=== PATIENT | female | born 1980 | race African-American/Black ===

== ENCOUNTER 2020-04-23 07:59 | Emergency (ER) | payer SELFPAY ==
[~2020-04-23] VITALS: Ht 149.9 cm; Wt 79.0 kg
[2020-04-23 08:41] VITALS: BP 169/79
--- NOTE | 2020-04-23 09:06 | PHYS DOC ---
General Adult EDM: Chief Complaint: SORE THROAT HPI: HPI: Patient is a 39 year old female who presented to ER today for evaluation of sore throat and nonproductive cough. Patient said a week ago she had oral sex and the penis went too deep into her throat causing her to gag. Patient has had sore throat since. Patient also have a nonproductive cough. Patient denies being exposed to anybody who tested positive for COVID-19. Patient said she has sexual intercourse with her boyfriend whom she has been with for 16 years. Patient denies any abdominal pain, no nausea vomiting, no chest pain, no trouble breathing. Review of Systems: Review of Systems: Constitutional: Denies fever or chills. [] Eyes: Denies change in visual acuity. [] HENT: Denies nasal congestion , positive for sore throat. Respiratory: Positive for cough, no trouble breathing. Cardiovascular: Denies chest pain or edema. [] GI: Denies abdominal pain, nausea, vomiting, bloody stools or diarrhea. [] : Denies dysuria. [] Musculoskeletal: Denies back pain or joint pain. [] Integument: Denies rash. [] Neurologic: Denies headache, focal weakness or sensory changes. [] Endocrine: Denies polyuria or polydipsia. [] Lymphatic: Denies swollen glands. [] Psychiatric: Denies depression or anxiety. [] Heart Score: Risk Factors: Risk Factors: DM, Current or recent (<one month) smoker, HTN, HLP, family history of CAD, obesity. Risk Scores: Score 0 - 3: 2.5% MACE over next 6 weeks - Discharge Home Score 4 - 6: 20.3% MACE over next 6 weeks - Admit for Clinical Observation Score 7 - 10: 72.7% MACE over next 6 weeks - Early Invasive Strategies Physical Exam: PE: Constitutional: Well developed, well nourished, no acute distress, non-toxic appearance. [] HENT: Normocephalic, atraumatic, bilateral external ears normal, oropharynx moist, no oral exudates, nose normal. TRACHEA IS MIDLINE, NO SWELLING, NO CREPIT US, NO TRISMUS, NO EXUDATION. Eyes: PERRLA, EOMI, conjunctiva normal, no discharge. [] Neck: Normal range of motion, no tenderness, supple, no stridor. [] Cardiovascular:Heart rate regular rhythm, no murmur [] Lungs & Thorax: Bilateral breath sounds clear to auscultation [] Abdomen: Bowel sounds normal, soft, no tenderness, no masses, no pulsatile masses. [] Skin: Warm, dry, no erythema, no rash. [] Back: No tenderness, no CVA tenderness. [] Extremities: No tenderness, no cyanosis, no clubbing, ROM intact, no edema. [] Neurologic: Alert and oriented X 3, normal motor function, normal sensory function, no focal deficits noted. [] Psychologic: Affect normal, judgement normal, mood normal. [] EKG: EKG: [] Radiology/Procedures: Radiology/Procedures: [][facility] [address] [place], [place] [id number] IMAGING REPORT Signed PATIENT: MARCELLA RIOJAS ACCOUNT: [id number] : 1980 LOCATION: ER AGE: 39 SEX: F EXAM STATUS: REG ER ORD. PHYSICIAN: KULWANT NAVARRO DO REASON: COUGH, PROCEDURE: CHEST AP ONLY CHEST AP ONLY History: Reason: COUGH, / Spl. Instructions: / History: Comparison: None. Findings: No consolidation or pleural effusion. Normal heart size. No pneumothorax. Impression: 1. No acute cardiopulmonary process. Electronically signed by: Pedro Franco DO (04/23/2020 9:46 AM) [id number] DICTATED and SIGNED BY: PEDRO FRANCO DO DATE: 04/23/20 0946 Course & Med Decision Making: Course & Med Decision Making Pertinent Labs and Imaging studies reviewed. (See chart for details) [] Dragon Disclaimer: Dragon Disclaimer: This electronic medical record was generated, in whole or in part, using a voice recognition dictation system. Departure Departure Impression: Primary Impression: Pharyngitis Disposition: 01 DC HOME SELF CARE/HOMELESS Condition: STABLE Referrals: CESAR STEEN JR, MD (PCP) FOLLOW UP WITH YOUR DOCTOR NEEDED Patient Instructions: Viral and Bacterial Pharyngitis Additional Instructions: Thank you for visiting our Emergency Department. We appreciate you trusting us with your care. If any additional problems come up don't hesitate to return to visit us. Please follow up with your primary care provider so they can plan additional care if needed and know about the problem that you had. If symptoms worsen come back to the Emergency Department. Any concerning symptoms that start such as chest pain, shortness of air, weakness or numbness on one side of the body, running high fevers or any other concerning symptoms return to the ER. Scripts Amoxicillin (AMOXICILLIN) 500 Mg Tablet 1 TAB PO TID, #30 TAB Prov: KULWANT NAVARRO DO 04/23/20 KULWANT NAVARRO DO Apr 23, 2020 09:06
--- NOTE | 2020-04-23 09:49 | RAD ---
CHEST AP ONLY History: Reason: COUGH, / Spl. Instructions: / History: Comparison: None. Findings: No consolidation or pleural effusion. Normal heart size. No pneumothorax. Impression: 1. No acute cardiopulmonary process. Electronically signed by: Pedro Franco DO (04/23/2020 9:46 AM) [id number]
[2020-04-23] MEDS ORDERED: AMOX500T PO (10:34)
--- NOTE | 2020-04-24 15:50 | NUR ---
IP: Informed pt of negative COVID test. Pt verbalized understanding.
== END 2020-04-23 10:42 | disposition home or self-care (01) ==
LOC: ER 07:59
DX: J02.9 Acute pharyngitis, unspecified (principal); Z20.828 Contact with and (suspected) exposure to other viral communicable diseases; R05 Cough
CPT/HCPCS: 71045; 87070; 87880; 99284; U0003

== ENCOUNTER 2021-02-20 05:37 | Emergency (ER) | payer SELFPAY ==
[~2021-02-20] VITALS: Ht 149.9 cm; Wt 78.0 kg
[~2021-02-20 05:37] MED LIST: AMOX500T PO
[2021-02-20] MEDS ORDERED: VANCOMYCIN PER PHARMACY MC PRN (08:15)
[2021-02-20 08:24] LABS: BASO # 0.1 x10^3/uL (0.0-0.2); BASO % 1 % (0-3); EOS # 0.1 x10^3/uL (0.0-0.7); EOS % 1 % (0-3); HEMATOCRIT 36.1 % (36.0-47.0); HEMOGLOBIN 12.1 g/dL (12.0-15.5); LYMPH # 2.2 x10^3/uL (1.0-4.8); LYMPH % 21 % (24-48); MEAN CORPUSCULAR HEMOGLOBIN 29 pg (25-35); MEAN CORPUSCULAR HGB CONC 34 g/dL (31-37); MEAN CORPUSCULAR VOLUME 86 fL (79-100); MONO # 0.9 x10^3/uL (0.0-1.1); MONO % 8 % (0-9); NEUT # 7.3 x10^3/uL (1.8-7.7); NEUT % 69 % (31-73); PLATELET COUNT 339 x10^3/uL (140-400); RED BLOOD COUNT 4.18 x10^6/uL (3.50-5.40); RED CELL DISTRIBUTION WIDTH 14.3 % (11.5-14.5); WHITE BLOOD COUNT 10.6 x10^3/uL (4.0-11.0)
[2021-02-20] MEDS ORDERED: ONDANSETRON PF 4 MG/2 ML VIAL. ONE (08:28)
[2021-02-20] MEDS ORDERED: VANCOMYCIN 1.5 GM in IV NORMAL SALINE 500ML BAG 500 ML IV ONE (08:30)
[2021-02-20] MEDS ORDERED: LIDOCAINE 1% Multi-Dose 20 ML VIAL. INJ ONE (08:30)
[2021-02-20] MEDS ORDERED: ONDANSETRON PF 4 MG/2 ML VIAL. IVP ONE (08:30)
[2021-02-20] MEDS ORDERED: IV NORMAL SALINE 1000ML BAG 1,000 ML IV ONE (08:30)
[2021-02-20] MEDS ORDERED: MORPHINE SULFATE 4 MG/ML INJ. IVP ONE (08:30)
[2021-02-20 08:38] LABS: CALCIUM 8.8 mg/dL (8.5-10.1); CREATININE 0.6 mg/dL (0.6-1.0); GFR 133.3; POTASSIUM 4.4 mmol/L (3.5-5.1)
[2021-02-20 08:44] LABS: ALBUMIN 3.1 g/dL (3.4-5.0); ALBUMIN/GLOBULIN RATIO 0.8 (1.0-1.7); TOTAL BILIRUBIN 0.4 mg/dL (0.2-1.0)
[2021-02-20 09:08] LABS: PREG TEST PT QUAL NEGATIVE (NEG)
[2021-02-20] MEDS ORDERED: HYDROmorphone 2 MG/ML VIAL IVP ONE (10:30)
--- NOTE | 2021-02-20 11:08 | PHYS DOC ---
Past Medical History Past Medical History: No Pertinent History Past Surgical History: No Surgical History Smoking Status: Former Smoker Alcohol Use: None General Adult EDM: Chief Complaint: LOWER EXTREMITY SWELLING HPI: HPI: Patient is a 40 year old female who present to ER for evaluation of a wound on her left calf area that been going on for 4 days. Patient states she felt like she was bitten by an insect or spider 4 days ago, she noted a small lesion, it became more swollen and painful, denies any fever. Patient denies any history of diabetic. Patient denies any chest pain or any trouble breathing. Review of Systems: Review of Systems: Constitutional: Denies fever or chills. [] Eyes: Denies change in visual acuity. [] HENT: Denies nasal congestion or sore throat. [] Respiratory: Denies cough or shortness of breath. [] Cardiovascular: Denies chest pain or edema. [] GI: Denies abdominal pain, nausea, vomiting, bloody stools or diarrhea. [] : Denies dysuria. [] Musculoskeletal: Denies back pain or joint pain. [] Integument: Positive for a large tender wound on the left proximal calf. Neurologic: Denies headache, focal weakness or sensory changes. [] Endocrine: Denies polyuria or polydipsia. [] Lymphatic: Denies swollen glands. [] Psychiatric: Denies depression or anxiety. [] Heart Score: C/O Chest Pain: N/A Risk Factors: Risk Factors: DM, Current or recent (<one month) smoker, HTN, HLP, family history of CAD, obesity. Risk Scores: Score 0 - 3: 2.5% MACE over next 6 weeks - Discharge Home Score 4 - 6: 20.3% MACE over next 6 weeks - Admit for Clinical Observation Score 7 - 10: 72.7% MACE over next 6 weeks - Early Invasive Strategies Current Medications: Current Medications Medications (Trade) Dose Ordered Sig/Robert Start Time Stop Time Status Last Admin Dose Admin Hydromorphone HCl (Dilaudid) 1 mg 1X ONCE 02/20/21 10:30 02/20/21 10:31 DC 02/20/21 10:25 1 MG Lidocaine HCl (Lidocaine 1% 20ml Vial) 40 ml 1X ONCE 02/20/21 08:30 02/20/21 08:31 DC 02/20/21 08:25 40 ML Morphine Sulfate (Morphine Sulfate) 4 mg 1X ONCE 02/20/21 08:30 02/20/21 08:31 DC 02/20/21 08:25 4 MG Ondansetron HCl (Zofran) 4 mg STK-MED ONCE 02/20/21 08:28 02/20/21 08:28 DC Sodium Chloride 1,000 ml @ 1,000 mls/hr 1X ONCE 02/20/21 08:30 02/20/21 09:29 DC 02/20/21 08:24 1,000 MLS/HR Vancomycin HCl (Vanco Per Pharmacy) 1 each PRN DAILY PRN 02/20/21 08:15 Vancomycin HCl 1.5 gm/Sodium Chloride 500 ml @ 250 mls/hr 1X ONCE 02/20/21 08:30 02/20/21 10:29 DC 02/20/21 08:27 250 MLS/HR Allergies: Allergies: Allergies Coded Allergies Type Severity Reaction Last Updated Verified No Known Drug Allergies 04/23/20 No Physical Exam: PE: Constitutional: Well developed, well nourished, no acute distress, non-toxic appearance. [] HENT: Normocephalic, atraumatic, bilateral external ears normal, oropharynx moist, no oral exudates, nose normal. [] Eyes: PERRLA, EOMI, conjunctiva normal, no discharge. [] Neck: Normal range of motion, no tenderness, supple, no stridor. [] Cardiovascular:Heart rate regular rhythm, no murmur [] Lungs & Thorax: Bilateral breath sounds clear to auscultation [] Abdomen: Bowel sounds normal, soft, no tenderness, no masses, no pulsatile masses. [] Skin: Warm, dry, large wound on left proximal calft area with 15 cm by 14 cm erythema with 4 cm by 4 cm indurated with centrally necrotic area. Back: No tenderness, no CVA tenderness. [] Extremities: No tenderness, no cyanosis, no clubbing, ROM intact, no edema. [] Neurologic: Alert and oriented X 3, normal motor function, normal sensory function, no focal deficits noted. [] Psychologic: Affect normal, judgement normal, mood normal. [] Current Patient Data: Labs: Laboratory Tests Test 02/20/21 08:12 White Blood Count 10.6 x10^3/uL (4.0-11.0) Red Blood Count 4.18 x10^6/uL (3.50-5.40) Hemoglobin 12.1 g/dL (12.0-15.5) Hematocrit 36.1 % (36.0-47.0) Mean Corpuscular Volume 86 fL (79-100) Mean Corpuscular Hemoglobin 29 pg (25-35) Mean Corpuscular Hemoglobin Concent 34 g/dL (31-37) Red Cell Distribution Width 14.3 % (11.5-14.5) Platelet Count 339 x10^3/uL (140-400) Neutrophils (%) (Auto) 69 % (31-73) Lymphocytes (%) (Auto) 21 % (24-48) L Monocytes (%) (Auto) 8 % (0-9) Eosinophils (%) (Auto) 1 % (0-3) Basophils (%) (Auto) 1 % (0-3) Neutrophils # (Auto) 7.3 x10^3/uL (1.8-7.7) Lymphocytes # (Auto) 2.2 x10^3/uL (1.0-4.8) Monocytes # (Auto) 0.9 x10^3/uL (0.0-1.1) Eosinophils # (Auto) 0.1 x10^3/uL (0.0-0.7) Basophils # (Auto) 0.1 x10^3/uL (0.0-0.2) Sodium Level 139 mmol/L (136-145) Potassium Level 4.4 mmol/L (3.5-5.1) Chloride Level 103 mmol/L (98-107) Carbon Dioxide Level 26 mmol/L (21-32) Anion Gap 10 (6-14) Blood Urea Nitrogen 13 mg/dL (7-20) Creatinine 0.6 mg/dL (0.6-1.0) Estimated GFR (Cockcroft-Gault) 133.3 BUN/Creatinine Ratio 22 (6-20) H Glucose Level 102 mg/dL (70-99) H Calcium Level 8.8 mg/dL (8.5-10.1) Total Bilirubin 0.4 mg/dL (0.2-1.0) Aspartate Amino Transferase (AST) 17 U/L (15-37) Alanine Aminotransferase (ALT) 23 U/L (14-59) Alkaline Phosphatase 89 U/L (46-116) Total Protein 7.0 g/dL (6.4-8.2) Albumin 3.1 g/dL (3.4-5.0) L Albumin/Globulin Ratio 0.8 (1.0-1.7) L Serum Test, Qualitative Negative (NEG) Laboratory Tests 02/20/21 08:12 Laboratory Tests 02/20/21 08:12 Vital Signs: Vital Signs Date Time Temp Pulse Resp B/P (MAP) Pulse Ox O2 Delivery O2 Flow Rate FiO2 02/20/21 10:25 100 Room Air 02/20/21 08:25 16 02/20/21 07:45 97.6 94 143/89 (109) 97.6 EKG: EKG: [] Radiology/Procedures: Radiology/Procedures: Indication: abscess Procedure: The patient was positioned appropriately. Local anesthesia was lidocaine 1% plain, 40 ml. An incision was then made over the apex of the lesion and large amount of purulent and serosanguous material was expressed. The drainage cavity was irrigated and packed with sterile gauze. The patients tetanus status updated as needed. The patient tolerated the procedure well. Complications: none. Course & Med Decision Making: Course & Med Decision Making Pertinent Labs and Imaging studies reviewed. (See chart for details) Patient is a 40-year-old female who present to ER with an infected wound on the left calf area, it was I&D, large amount of purulent material was drained, pat ient was even vancomycin in ER. Patient was discharged home with Keflex and Bactrim. The wound was packed, patient went to see her doctor in 2 days for packing removal and wound rechecked. Dragon Disclaimer: Carito Disclaimer: This electronic medical record was generated, in whole or in part, using a voice recognition dictation system. Departure Departure Impression: Primary Impression: Insect bite of left lower leg with infection Additional Impression: Cellulitis and abscess of left leg Disposition: 01 HOME / SELF CARE / HOMELESS Condition: STABLE Referrals: CESAR STEEN JR, MD (PCP) Follow up with your doctor in 2 days for wound rechecked Patient Instructions: Abscess, Care After, Cellulitis Additional Instructions: Thank you for visiting our Emergency Department. We appreciate you trusting us with your care. If any additional problems come up don't hesitate to return to visit us. Please follow up with your primary care provider so they can plan additional care if needed and know about the problem that you had. If symptoms worsen come back to the Emergency Department. Any concerning symptoms that start such as chest pain, shortness of air, weakness or numbness on one side of the body, running high fevers or any other concerning symptoms return to the ER. Scripts Hydrocodone/Acetaminophen (Hydrocodone-Acetamin 5-325 mg) 1 Each Tablet 1 EACH PO Q6HRS PRN for PAIN, #15 TAB Prov: KULWANT NAVARRO DO 02/20/21 Cephalexin (CEPHALEXIN) 500 Mg Capsule 1 CAP PO QID for 20 Days, #80 CAP Prov: KULWANT NAVARRO DO 02/20/21 Sulfamethoxazole/Trimethoprim (BACTRIM DS TABLET) 1 Each Tablet 1 TAB PO BID for 10 Days, #20 TAB 0 Refills Prov: KULWANT NAVARRO DO 02/20/21 KULWANT NAVARRO DO Feb 20, 2021 11:08
[2021-02-20] MEDS ORDERED: HYDR-2759 PO (11:23)
[2021-02-20] MEDS ORDERED: CEPH500C PO (11:23)
[2021-02-20] MEDS ORDERED: SULF1TAB24 PO (11:23)
[2021-02-20 11:30] VITALS: BP 128/65
--- NOTE | 2021-02-20 12:42 | NUR ---
Pharmacy Vancomycin Dosing Note S: Consulted to monitor and dose vancomycin started 02/20/21. O: MARCELLA RIOJAS is a 40 year old F with Cellulitis, INSECT BITE INFECTION . Other Antibiotics: KEFLEX/BACTRIM OP FAILURE LABS: Last BUN: 13 Last Creatinine: 0.6 Creatinine Clearance: > 100 mL/min Last WBC: 10.6 Tmax (past 24 hours): AFEBRILE Vancomycin Dosing: ADJUSTED WEIGHT Dosing Weight: 59KG Target Trough: 10-20 A: Based on: VANCO dosing guidelines P: 1. Begin Vancomycin 1500mg LOAD dose, then 1000 mg IV q8h 2. Follow up Trough level on 02/21/21 at 0830 3. Pharmacy will continue to monitor, follow and adjust therapy as needed. MICHELLE LIVINGSTON [facility], 02/20/21 9030
[2021-02-20] MEDS ORDERED: VANCOMYCIN 1 GM in IV NORMAL SALINE 250ML 250 ML IV SCH (17:00)
== END 2021-02-20 11:36 | disposition home or self-care (01) ==
LOC: ER 05:37
DX: S80.862A Insect bite (nonvenomous), left lower leg, initial encounter (principal); L02.416 Cutaneous abscess of left lower limb; L03.116 Cellulitis of left lower limb; Z87.891 Personal history of nicotine dependence; W57.XXXA Bitten or stung by nonvenomous insect and other nonvenomous arthropods, initial encounter; Y93.89 Activity, other specified; Y92.89 Other specified places as the place of occurrence of the external cause; Y99.8 Other external cause status
CPT/HCPCS: 10061; 36415; 80053; 84703; 85025; 96365; 96366; 96375; 99285; J1170; J2270; J2405; J3370; J3490; J7030; J7040

== ENCOUNTER 2021-06-28 01:25 | Emergency (ER) | payer SELFPAY ==
[~2021-06-28] VITALS: Ht 149.9 cm; Wt 81.8 kg
[~2021-06-28 01:25] MED LIST changes: +CEPH500C PO; +HYDR-2759 PO; +SULF1TAB24 PO
[2021-06-28 02:58] VITALS: BP 149/65
--- NOTE | 2021-06-28 03:08 | ED.ADGEN ---
Past Medical History Past Medical History: No Pertinent History Past Surgical History: No Surgical History Smoking Status: Former Smoker Alcohol Use: None General Adult EDM: Chief Complaint: COUGH HPI: HPI: Patient is a 40 year old female coming in for 4 days of cough. Patient is in tonight because she had difficulty sleeping. Present she is lying down she starts coughing worse. Has a cough is occasionally productive of green phlegm. Denies any fevers, chills, body aches or GI complaints. Got her [employer] Covid vaccine in 6 months ago, has not had a flu vaccine. She has tried taking [id number] cough medicine with minimal improvement Review of Systems: Review of Systems: All other systems within normal limits except for as noted in the HPI Current Medications: Current Medications Medications (Trade) Dose Ordered Sig/Robert Start Time Stop Time Status Last Admin Dose Admin Benzonatate (Tessalon Perle) 100 mg 1X ONCE 06/28/21 03:15 06/28/21 03:16 DC 06/28/21 03:19 100 MG Allergies: Allergies: Allergies Coded Allergies Type Severity Reaction Last Updated Verified No Known Drug Allergies 04/23/20 No Physical Exam: PE: Constitutional: Well developed, well nourished, no acute distress, non-toxic appearance. [] HENT: Normocephalic, atraumatic, bilateral external ears normal, nose normal. [] Eyes: PERRLA, conjunctiva normal, no discharge. [] Neck: No rigidity, supple, no stridor. [] Cardiovascular: Regular rate and rhythm, brisk cap refill [] Lungs & Thorax: Non labored symmetric respirations, no tachypnea or respiratory distress musculoskeletal [] Abdomen: Soft, nondistended. Skin: Warm, dry, no erythema, no rash. [] Back: Unremarkable Extremities: No deformities, range of motion grossly intact, no lower extremity edema [] Neurologic: Alert and oriented X 3, no focal deficits noted. [] Psychologic: Affect normal, judgement normal, mood normal. [] Current Patient Data: Vital Signs: Vital Signs Date Time Temp Pulse Resp B/P (MAP) Pulse Ox O2 Delivery O2 Flow Rate FiO2 06/28/21 02:58 98 20 149/65 (93) 96 Room Air 06/28/21 02:38 97.8 97.8 EKG: EKG: [] Heart Score: C/O Chest Pain: No Risk Factors: Risk Factors: DM, Current or recent (<one month) smoker, HTN, HLP, family history of CAD, obesity. Risk Scores: Score 0 - 3: 2.5% MACE over next 6 weeks - Discharge Home Score 4 - 6: 20.3% MACE over next 6 weeks - Admit for Clinical Observation Score 7 - 10: 72.7% MACE over next 6 weeks - Early Invasive Strategies Radiology/Procedures: Radiology/Procedures: [facility] [address] [place] [address] IMAGING REPORT Signed PATIENT: MARCELLA RIOJAS ACCOUNT: [id number] : 1980 LOCATION: ER AGE: 40 SEX: F EXAM STATUS: REG ER ORD. PHYSICIAN: MARSHA HOWELL MD REASON: cough PROCEDURE: CHEST AP ONLY XR CHEST 1V INDICATION: cough COMPARISON STUDY: None. FINDINGS: Lungs: Normal lung volume. No pulmonary mass or consolidation. The tracheobronchial tree and hilar structures are normal. Pleura: No pleural effusion or pneumothorax. Heart and Mediastinum: The cardiomediastinal silhouette is normal. The great vessels of the thorax are normal. Bones and Soft Tissues: The bones and soft tissues are within normal limits. IMPRESSION: No acute cardiopulmonary process. Electronically signed by: Ras Forbes MD (06/28/2021 3:51 AM) [facility] DICTATED and SIGNED BY: RAS FORBES MD DATE: 06/28/21 [id number] [] Course & Med Decision Making: Course & Med Decision Making Pertinent Labs and Imaging studies reviewed. (See chart for details) [] Dragon Disclaimer: Dragon Disclaimer: This electronic medical record was generated, in whole or in part, using a voice recognition dictation system. Departure Departure Impression: Primary Impression: Bronchitis Disposition: HOME / SELF CARE / HOMELESS Condition: STABLE Referrals: NO PCP (PCP) Patient Instructions: Bronchitis Scripts Benzonatate (BENZONATATE) 200 Mg Capsule 1 CAP PO PRN TID PRN for cough for 7 Days, #21 CAP 0 Refills Prov: MARSHA HOWELL MD 06/28/21 Azithromycin (ZITHROMAX) 250 Mg Tablet 1 PKG PO UD for antibiotic, #6 TAB Prov: MARSHA HOWELL MD 06/28/21 Prednisone (PREDNISONE) 50 Mg Tablet 1 TAB PO DAILY for steroid for 5 Days, #5 TAB Prov: MARSHA HOWELL MD 06/28/21 MARSHA HOWELL MD Jun 28, 2021 03:08
[2021-06-28] MEDS ORDERED: BENZONATATE 100 MG CAPSULE. PO ONE (03:15)
[2021-06-28] MEDS ORDERED: BENZ200C47 PO (03:54)
[2021-06-28] MEDS ORDERED: PRED50TA PO (03:54)
[2021-06-28] MEDS ORDERED: AZIT250T PO (03:54)
--- NOTE | 2021-06-28 03:54 | RAD ---
XR CHEST 1V INDICATION: cough COMPARISON STUDY: None. FINDINGS: Lungs: Normal lung volume. No pulmonary mass or consolidation. The tracheobronchial tree and hilar st ructures are normal. Pleura: No pleural effusion or pneumothorax. Heart and Mediastinum: The cardiomediastinal silhouette is normal. The great vessels of the thorax ar e normal. Bones and Soft Tissues: The bones and soft tissues are within normal limits. IMPRESSION: No acute cardiopulmonary process. Electronically signed by: Kaz Méndez MD (06/28/2021 3:51 AM) [facility]
== END 2021-06-28 04:10 | disposition home or self-care (01) ==
LOC: ER 01:25
DX: J40 Bronchitis, not specified as acute or chronic (principal); Z87.891 Personal history of nicotine dependence
CPT/HCPCS: 71045; 99283